=== PATIENT | female | born 1975 | race Caucasian/White ===

== ENCOUNTER → 2017-11-16 | Outpatient (CLI) | payer OTHER ==
--- NOTE | 2017-11-16 17:02 | DIAGNOSTIC IMAGING REPORT ---
ADDENDUM Incidental note is made of an accessory Flexor Digitorum Longus. Electronically signed by: Shen Priest M.D. 11/16/2017 5:52 PM Dictated Date/Time: 11/16/2017 5:48 PM ORIGINAL REPORT L LOWER EXT JOINT WITHOUT CLINICAL HISTORY: 42 years-old Female with ELLEN PLANTAR FASCIAL FIBROMATOSIS,CALCANEAL SPURS. Chronic calcaneal and midfoot pain with history of plantar fascial pathology. COMPARISON: None. TECHNIQUE: Multiplanar, multi sequence MRI of the left ankle was performed without contrast. FINDINGS: LATERAL LIGAMENT COMPLEX: There is attenuation with intermediate T2 signal involving the anterior talofibular ligament with osteophytic spurring at the distal fibular attachment site. Findings are compatible with chronic sprain. There is thickening with intermediate signal of the calcaneal fibular ligament compatible with chronic sprain. The posterior talofibular ligament is intact. SYNDESMOTIC LIGAMENTS: Chronic sprain of the anterior-inferior tibiofibular ligament. The interosseous membrane and posterior-inferior tibiofibular ligaments are intact. DELTOID LIGAMENT COMPLEX: The superficial and deep components of the deltoid ligament are intact. ANTERIOR TENDONS: The tibialis anterior, extensor hallucis longus and extensor digitorum longus tendons are normal in position, morphology and signal. LATERAL TENDONS: The peroneus longus and brevis tendons are intact. Mild intermediate signal of the peroneus longus along its posterior malleolar coarse as seen on image 13 series 10 compatible with mild tendinosis. MEDIAL TENDONS: The posterior tibialis, flexor digitorum longus and flexor hallucis longus tendons are intact. Trace tenosynovitis of the tibialis posterior tendon along its inframalleolar coarse. PLANTAR FASCIA: Moderate to large enthesophyte of the calcaneus at the plantar insertion site. There is at least moderate thickening of both the medial and lateral cords of the plantar fascia with moderate surrounding edema. Fluid-filled cleft involves the insertion of the medial cord plantar fascia measuring 8 x 9 mm in transverse and AP dimension respectively nicely seen on image 26 series 8 and image 9 of series 6 compatible with high-grade partial insertional tear. No evidence of plantar fascial nodules. ACHILLES TENDON: The Achilles tendon is normal in position, morphology and signal. No associated bursitis. SINUS TARSI: There is normal fat signal within the sinus tarsi. The interosseous and cervical ligaments are normal. The navicular-calcaneal (spring) ligament iswithout acute abnormality. TARSAL TUNNEL: There are no obstructing lesions within the tarsal tunnel. BONE MARROW: Bone marrow is normal in signal without evidence of fracture, marrow contusion or marrow occupying lesion. SOFT TISSUES: Small tibiotalar and subtalar joint effusion with fluid seen within the posterior recess. T2 hyperintense collection measuring 12 x 5 x 15 mm is noted lateral to the talar neck as seen on image 18 series 10 suggesting a small ganglion. IMPRESSION: 1. Acute on chronic plantar fasciitis with high-grade partial insertional tear of the medial cord plantar fascia. 2. Mild tendinosis of the peroneus longus. 3. Trace tenosynovitis of the tibialis posterior tendon. 4. Chronic sprains of the anterior talofibular and calcaneal fibular ligaments. 5. Small tibiotalar and subtalar joint effusions. The above report was generated using voice recognition software. It may contain grammatical, syntax or spelling errors. Electronically signed by: Shen Priest M.D. 11/16/2017 5:00 PM Dictated Date/Time: 11/16/2017 4:39 PM
--- NOTE | 2017-11-16 17:49 | DIAGNOSTIC IMAGING REPORT ---
R LOWER EXT JOINT WITHOUT CLINICAL HISTORY: 42 years-old Female with ELLEN PLANTAR FASCIAL FIBROMATOSIS,CALCANEAL SPURS. Chronic calcaneal pain COMPARISON: MRI of the left ankle of same day TECHNIQUE: Multiplanar, multi sequence MRI of the right ankle was performed without contrast. FINDINGS: LATERAL LIGAMENT COMPLEX: The anterior talofibular ligament, calcaneofibular ligament and posterior talofibular ligaments are intact. SYNDESMOTIC LIGAMENTS: The anterior-inferior tibiofibular ligament, interosseous membrane and posterior-inferior tibiofibular ligaments are intact. DELTOID LIGAMENT COMPLEX: The superficial and deep components of the deltoid ligament are intact. ANTERIOR TENDONS: The tibialis anterior, extensor hallucis longus and extensor digitorum longus tendons are normal in position, morphology and signal. LATERAL TENDONS: There is moderate tendinosis of the peroneus longus without tear. The peroneus brevis tendon appears unremarkable and is intact. MEDIAL TENDONS: Trace tenosynovitis of the posterior tibialis without tear. Flexor digitorum longus and flexor hallucis longus tendons are unremarkable and are intact. PLANTAR FASCIA: Moderate sized enthesophyte about the plantar calcaneus. There is mild bone marrow edema of the plantar calcaneus with moderate thickening of both the medial and lateral cords of the plantar fascia with mild surrounding edema. No definite plantar fascial tear or plantar fascial nodules identified. ACHILLES TENDON: The Achilles tendon is normal in position, morphology and signal. No associated bursitis. SINUS TARSI: There is normal fat signal within the sinus tarsi. The interosseous and cervical ligaments are normal. The navicular-calcaneal (spring) ligament is without acute abnormality. TARSAL TUNNEL: Note is made of an accessory flexor digitorum longus coursing posterior to the neurovascular bundle nicely seen on image 17 series 10. BONE MARROW: Mild bone marrow edema of the plantar calcaneus as above. No fracture or osteochondral defect. No significant degenerative changes. Os trigonum with minimal edema. Trace fluid within the posterior recess. IMPRESSION: 1 .Moderate sized enthesophyte about the plantar calcaneus with acute on chronic plantar fasciitis. Mild bone marrow edema of the plantar calcaneus is likely reactive. No evidence of plantar fascial tear. 2. Moderate tendinosis of the peroneus longus. 3. Trace tenosynovitis of the tibialis posterior without tear. 4. Incidental note is made of an accessory flexor digitorum longus. The above report was generated using voice recognition software. It may contain grammatical, syntax or spelling errors. Electronically signed by: Shen Priest M.D. 11/16/2017 5:48 PM Dictated Date/Time: 11/16/2017 5:19 PM
== END | disposition home or self-care (01) ==
LOC: C.MRIBC 15:32
PROVIDERS: ATTEND Podiatrist
DX: M72.2 Plantar fascial fibromatosis (principal); M77.32 Calcaneal spur, left foot; M79.672 Pain in left foot; M77.31 Calcaneal spur, right foot

== ENCOUNTER 2017-11-27 22:37 | Emergency (ER) | payer OTHER ==
[~2017-11-27] VITALS: Ht 157.5 cm; Wt 88.2 kg
[2017-11-27 22:42] VITALS: TEMP 36.7; Ht 157.5 cm; Wt 88.2 kg
[2017-11-27] MEDS ORDERED: MULT-513 PO (23:07)
[2017-11-27] MEDS ORDERED: DULO60CA44 PO (23:07)
[2017-11-27] MEDS ORDERED: ASCO1CAP3 PO (23:07)
[2017-11-27] MEDS ORDERED: CEFA500C2 PO (23:07)
[2017-11-27] MEDS ORDERED: LIOT1TAB10 PO (23:07)
[2017-11-27] MEDS ORDERED: VITATAB19 PO (23:07)
[2017-11-27] MEDS ORDERED: LEVO125T72 PO (23:07)
--- NOTE | 2017-11-27 23:19 | EMERGENCY ROOM VISIT NOTE ---
History Report prepared by Tona: Mechelle Alanis Under the Supervision of: Dr. Steffany Marquis D.O. First contact with patient: 22:58 Chief Complaint: OTHER COMPLAINT Stated Complaint: CLOGGED/PAINFUL LEWIS DRAIN History of Present Illness The patient is a 42 year old female who presents to the Emergency Room with complaints of a clogged LEWIS drain on her right breast tonight. The patient states that she had a breast reduction 4 days ago and that her left drain has been fine but that her right drain has only been draining about 1/4 of the amount of fluid that the left drain has been draining. The patient reports that there was a blood clot in her right drain and that the clot got sucked back inside her body when she disconnected the bulb, which she states has worried her. She also reports that the drain on her right breast is in the shape of a "C " and is concerned that it is not working properly. The patient states that she dropped the bulb of her drain into the sink and she states that she is concerned for infection going back up through the drain into the surgical bed. She states that she has barely been sleeping well because the drains are uncomfortable. and rates her pain at a 6/10. The patient reports a history of a hysterectomy, cesarian section, appendicitis, and back surgery, but reports that she has never had LEWIS drains before. Source of History: patient Onset: tonight Position: other (right breast) Symptom Intensity: rated at a 6/10 Quality: other (clogged LEWIS drain ) Timing: constant Review of Systems See HPI for pertinent positives & negatives. A total of 6 systems reviewed and were otherwise negative. Past Medical & Surgical Medical Problems: (1) Appendicitis (2) No active medical problems Surgical Problems: (1) delivery delivered (2) H/O: hysterectomy (3) Previous back surgery (4) Status post breast reduction Family History Diabetes mellitus Heart disease Kidney disease Lung disease Social History Smoking Status: Never Smoker Alcohol Use: none Drug Use: none Marital Status: Housing Status: lives with significant other Current/Historical Medications Scheduled Ascorbic Acid (Vitamin C), 500 MG PO DAILY Cefadroxil (Duricef), 500 MG PO BID Duloxetine Hcl (Cymbalta), 60 MG PO DAILY Levothyroxine Sodium (Synthroid), 125 MCG PO DAILY Liothyronine Sodium (Cytomel), 10 MCG PO DAILY Multivitamins/Minerals (Mvi With Minerals), 1 TAB PO DAILY Multivitamins/Minerals (Mvi With Minerals), 1 TAB PO DAILY Vitamin A-Beta Carotene (Vitamin A), 1 TAB PO DAILY Allergies Coded Allergies: Sulfa Drugs (Verified Allergy, Intermediate, WELTS AND ITCHING, 11/27/17) Physical Exam Vital Signs Date Time Temp Pulse Resp B/P (MAP) Pulse Ox O2 Delivery O2 Flow Rate FiO2 11/27/17 23:32 68 20 115/82 97 11/27/17 22:42 36.7 79 20 127/84 96 Room Air Physical Exam Breasts: Surgical incisions appear well healing and there are no signs of infection. There is moderate edema and ecchymosis surrounding the incisions. LEWIS drains appear to be in good position. Sutures are in place. There are no signs of cellulitis. Medical Decision & Procedures ED Course 2301: Past medical records reviewed. The patient was evaluated in room C4. A complete history and physical exam was performed. 2330: The patient verbalized agreement of the treatment plan. She was discharged home. Medical Decision This is a 42-year-old female patient who presents to the emergency department with concerns about her LEWIS drains following a breast reduction. I reassured the patient that the incisions appeared well healing with no signs of infection. It seems that the LEWIS drains are working normally. There is a possibility that when she disconnected the right LEWIS drain and allowed it to drop into the sink that there could have been some bacteria on the drain. However, the patient is on prophylactic antibiotics and there is no way to know if it became contaminated. I have encouraged the patient to watch for signs of infection or fever. The patient has a follow-up appointment with her surgeon in 2 days. She should keep that appointment. She should continue taking the prophylactic antibiotics and return here to the emergency department for worsening symptoms. The patient felt reassured and is if she could go home and rest. Medication Reconcilliation Current Medication List: was personally reviewed by me Blood Pressure Screening Patient's blood pressure: Normal blood pressure Impression Primary Impression: Post surgical complication Scribe Attestation The scribe's documentation has been prepared under my direction and personally reviewed by me in its entirety. I confirm that the note above accurately reflects all work, treatment, procedures, and medical decision making performed by me. Departure Information Dispostion Home / Self-Care Referrals Adria Covington (PCP) Forms HOME CARE DOCUMENTATION FORM, IMPORTANT VISIT INFORMATION, WORK / SCHOOL INSTRUCTIONS Patient Instructions My [facility] [employer] Additional Instructions Watch for fever or increasing pain. Continue to take the Duricef. Follow up with Dr. Andre on Tuesday Problem Qualifiers Primary Impression: Post surgical complication Surgical complication system/body Area: subcutaneous tissue Surgical complication type: seroma Procedure type: dermatologic Qualified Codes: L76.33 - Postprocedural seroma of skin and subcutaneous tissue following a dermatologic procedure
[2017-11-27 23:32] VITALS: BP 115/82; PULSE 68; O2SAT 97
== END 2017-11-27 23:33 | disposition home or self-care (01) ==
LOC: C.EDB 22:39 → C.EDC 23:33
DX: T85.898A Other specified complication of other internal prosthetic devices, implants and grafts, initial encounter (principal); X58.XXXA Exposure to other specified factors, initial encounter; Z98.890 Other specified postprocedural states; Z88.2 Allergy status to sulfonamides

== ENCOUNTER → 2018-02-02 | Outpatient (CLI) | payer OTHER ==
[~2018-02-02] MED LIST: ASCO1CAP3 PO; CEFA500C2 PO; DULO60CA44 PO; GADAVIST IV PRN; LEVO125T72 PO; LIOT1TAB10 PO; MULT-513 PO; VITATAB19 PO
--- NOTE | 2018-02-02 22:42 | DIAGNOSTIC IMAGING REPORT ---
PELVIC COMBO HISTORY: 42 years-old Female SACROILITIS, TROCHANTERIC TENDONITIS *BILAT HIPS chronic bilateral SI joint and bilateral hip pain. Patient reports he has a history of ankylosing spondylitis. COMPARISON: Hip radiographs 04/30/2013, CT abdomen and pelvis 09/07/2013 TECHNIQUE: Multiplanar multisequence MRI of the pelvis was obtained both with and without the use of 9 ml Gadavist FINDINGS: Seed Technician localizer images demonstrate no gross abnormality. Urinary bladder appears unremarkable. No gross abnormality identified within the abdomen or soft tissues on the lens fabricating machine tender localizer images. There is a 1.5 cm ovoid circumscribed homogeneous nonenhancing cystic lesion about the right vagina with similar appearing 6 mm lesion seen on the left, image 41 series 5. Follicular changes about the right ovary measuring up to 1.7 cm. Right ovary overall measures up to 2.1 x 2.7 x 2.3 cm. Left ovary is not definitively seen. Prior hysterectomy. The imaged aorta and IVC appear unremarkable. Iliac vessels are also within normal limits. Mild colonic diverticulosis. No pathologically enlarged lymph nodes identified. Musculature about the pelvis and lower pelvic wall appear unremarkable. Sciatic nerves appear to be within normal limits. No acute fracture, subluxation or focal bone marrow edema. No evidence of avascular necrosis of the femoral heads. No significant joint space narrowing or large joint effusion. Physiologic amount of fluid is seen about the bilateral femoral acetabular joints. No discrete labral tear identified. There is mild enthesitis about the bilateral gluteal attachment sites at the greater trochanters, left greater than right. No evidence of greater trochanteric or iliopsoas bursitis. No evidence of ischiofemoral impingement. The bilateral SI joints appear to be within normal limits. No erosive changes or focal bone marrow edema. No significant degenerative changes. There is mild asymmetric enhancement about the left semimembranosus attachment site at the ischial tuberosity, image 40 series 18 with mild edema. IMPRESSION: 1. Unremarkable appearance of the bilateral sacroiliac and femoral acetabular joints without evidence of sacroiliitis, focal bone marrow edema or erosive arthropathy. 2. Mild enthesitis about the bilateral gluteal attachment sites at the greater trochanters, left greater than right without evidence of bursitis. 3. Mild edema with enhancement about the left semimembranosus attachment site suggests tendinosis without tear. 4. Prior hysterectomy. 5. Vaginal cysts as described above suggests probable Bartholin gland cysts. The above report was generated using voice recognition software. It may contain grammatical, syntax or spelling errors. Electronically signed by: Shen Priest M.D. 02/02/2018 10:40 PM Dictated Date/Time: 02/02/2018 8:58 PM
== END | disposition home or self-care (01) ==
LOC: C.MRI 19:11
DX: M46.1 Sacroiliitis, not elsewhere classified (principal); M70.60 Trochanteric bursitis, unspecified hip; N89.8 Other specified noninflammatory disorders of vagina